=== PATIENT | male | born 1975 | race Caucasian/White ===

== ENCOUNTER → 2018-09-30 | Outpatient (CLI) | payer OTHER ==
--- NOTE | 2018-09-30 14:12 | PCVCIMAG ---
APPROVED REPORT Study performed: 09/30/2018 09:46:48 Exam: Stress Echocardiogram Indication: Hyperlipidemia, Hypertension, Chest pain during exertion Patient Location: Echo lab Stress Nurse: Esperanza Johnson RN Status: routine Ht: 6 ft 0 in HR: 81 bpm BP: 140/90 mmHg Rhythm: NSR Medical History Medical History: Hyperlipidemia, HTN Exercise History: Sedentary Procedure The patient underwent an Exercise Stress Test using the Dayo Protocol. Blood pressure, heart rate, and EKG were monitored. An Echocardiogram was performed by aviation safety technician in four stages in quad fashion. At peak stress, four selected images were obtained and placed side by side with resting images for comparison. Stress Test Details Stress Test: Exercise stress testing was performed using a Dayo protocol. HR Resting HR: 81 bpmMax Heart Rate (APMHR): 178 bpm Max HR Achieved: 173 bpmTarget HR (85% APMHR): 151 bpm % of APMHR: 97 Recovery HR: 110 bpm HR response to stress: Normal HR response to stress BP Resting BP: 140/90 mmHg Max BP: 200/90 mmHg Recovery BP: 140/84 mmHg BP response to stress: Normal blood pressure response to stress. ECG Resting ECG: Sinus Rhythm Stress ECG: Sinus Rhythm ST Change: , Horizontal ST depression Maximum ST Deviation: 2 mm Recovery ECG: Sinus Rhythm Clinical Reason for Termination: Maximal effort Exercise duration: 10 min 56 sec Highest Stage Achieved: Stage 4: 4.2 mph at 16% grade. Exercise capacity: 13.40 METs Overall Exercise Capacity for Age: Good Pre-Stress Echo The resting Echocardiogram showed normal left ventricular contractility with an estimated Ejection Fraction of about 55-60%. Post-Stress Echo The stress Echocardiogram showed normal left ventricular contractility with an estimated Ejection Fraction of about 60-65%. Mild basal inferior hypoikinesis. Conclusion Clinical Response: Non-ischemic Exercise Capacity: Average Stress ECG Response: Ischemic Stress Echo Images: Ischemic Other Information Study Quality: Good
== END | disposition home or self-care (01) ==
LOC: PCVCIMAG 09:35
PROVIDERS: ATTEND Internal Medicine Cardiovascular Disease
DX: R07.9 Chest pain, unspecified (principal); I10 Essential (primary) hypertension; E78.5 Hyperlipidemia, unspecified
CPT/HCPCS: 93325; 93351

== ENCOUNTER → 2019-08-19 | Outpatient (CLI) | payer OTHER ==
--- NOTE | 2019-08-19 15:26 | PCVCIMAG ---
APPROVED REPORT Study performed: 08/19/2019 14:35:40 Exam: Stress Echocardiogram Indication: CAD s/p PCI Patient Location: Echo lab Stress Nurse: Danya Daigle RN Room #: 2 Status: routine Ht: 6 ft 0 in HR: 92 bpm BP: 142/80 mmHg Rhythm: NSR Medical History Medical History: CAD s/p stent, Hyperlipidemia Cardiac Risk Factors: Hyperlipidemia Previous Cardiac Procedures: PCI Pretest Chest Pain Characteristics: No chest pain Exercise History: Physically active Procedure The patient underwent an Exercise Stress Test using the Dayo Protocol. Blood pressure, heart rate, and EKG were monitored. An Echocardiogram was performed by mobile lab technician in four stages in quad fashion. At peak stress, four selected images were obtained and placed side by side with resting images for comparison. Stress Test Details Stress Test: Exercise stress testing was performed using a Dayo protocol. HR Resting HR: 92 bpmMax Heart Rate (APMHR): 177 bpm Max HR Achieved: 181 bpmTarget HR (85% APMHR): 150 bpm % of APMHR: 102 Recovery HR: 118 bpm HR response to stress: Normal HR response to stress BP Resting BP: 142/80 mmHg Max BP: 162/72 mmHg Recovery BP: 160/72 mmHg BP response to stress: Normal blood pressure response to stress. ECG Resting ECG: Sinus Rhythm, NSSTT changes Stress ECG: Sinus Rhythm, NSSTT changes ST Change: Non-ischemic, upsloping Maximum ST Deviation: -2.45 mm Arrhythmia: Rare PACs Recovery ECG: Sinus Rhythm, NSSTT changes Recovery ST Change: Non-ischemic Recovery ST Deviation: -1.25 mm Recovery Arrhythmia: None Clinical Reason for Termination: Maximal effort Exercise duration: 9 min 44 sec Highest Stage Achieved: Stage 4: 4.2 mph at 16% grade. Exercise capacity: 12.7 METs Overall Exercise Capacity for Age: Good Scale: Active Angina Score: None No complications. Stress ECG Conclusion Huerta Treadmill Score is 21.3 which is Low risk. Pre-Stress Echo The resting Echocardiogram showed normal left ventricular contractility with an estimated Ejection Fraction of about 55-60%. Normal wall motion in all segments on baseline images. Post-Stress Echo The stress Echocardiogram showed normal left ventricular contractility with an estimated Ejection Fraction of about 65-70%. Normal augmentation of wall motion in all segments on post stress images. Clinical No clinical or ECG evidence for ischemia. Conclusion Clinical Response: Non-ischemic Exercise Capacity: Superior Stress ECG Response: Non-ischemic Stress Echo Images: Non-ischemic No clinical, EKG or echocardiographic evidence for ischemia. No echocardiographic evidence for exercise induced ischemia. Normal stress echocardiogram with maximal exercise stress. Normal color doppler. No regurgitation or stenosis present on pulmonic, mitral, tricuspid and aortic valves. <Conclusion> No clinical, EKG or echocardiographic evidence for ischemia. No echocardiographic evidence for exercise induced ischemia. Normal stress echocardiogram with maximal exercise stress. Normal color doppler. No regurgitation or stenosis present on pulmonic, mitral, tricuspid and aortic valves.
== END | disposition home or self-care (01) ==
LOC: PCVCIMAG 14:23
PROVIDERS: ATTEND Internal Medicine Cardiovascular Disease
DX: I25.10 Atherosclerotic heart disease of native coronary artery without angina pectoris (principal)
CPT/HCPCS: 93325; 93351